=== PATIENT | female | born 1950 | race African-American/Black ===

== ENCOUNTER 2019-05-25 17:12 | Emergency (ER) | payer OTHER ==
[~2019-05-25] VITALS: Ht 170.2 cm; Wt 70.8 kg
[2019-05-25 17:17] VITALS: BP 145/79
--- NOTE | 2019-05-25 17:23 | NUR ---
ED Nurse Note: Pt walked in due to right arm and hand swelling after slipping and falling x 2 days ago in her garage. Denies head injury but noted right arm and hand moderate swelling. AAO x4, ambulatory and able to move RUE.
--- NOTE | 2019-05-25 17:25 | NUR ---
ED Nurse Note: ICE PACK APPLIED ON RIGHT HAND AND ARM.
[2019-05-25] MEDS ORDERED: Tylenol #3 tab (300mg/30mg) ONE (17:29)
[2019-05-25] MEDS ORDERED: Tylenol #3 tab (300mg/30mg) PO ONE (17:30)
--- NOTE | 2019-05-25 17:51 | NUR ---
ED Nurse Note: MASTER PRINTER AT THE BED SIDE FOR XRAY.
[2019-05-25] MEDS ORDERED: ACETAMINOPHEN-1 EAC1 ORAL (18:36)
[2019-05-25 18:40] VITALS: BP 139/80
--- NOTE | 2019-05-25 18:40 | NUR ---
ER DISCHARGE NOTE: Patient is cleared to be discharged per ERMD, pt is aox4, on room air, with stable vital signs. pt was given dc and prescription instructions, pt was able to verbalize understanding, pt id band removed without complications. pt is able to ambulate with steady gait. pt took all belongings and left with her family member.
--- NOTE | 2019-05-25 19:15 | Emergency Room Report ---
History of Present Illness General Chief Complaint: Upper Extremity Injury Source: Patient Present Illness HPI 68-year-old female presents ED for evaluation. Complaining of pain to the right wrist and hand. States she had a mechanical trip and fall 2 days ago and landed on her outstretched right hand. Denies hitting her head or LOC. Notes pain and swelling to the right hand and wrist. Throbbing, 8 out of 10, nonradiating. Denies any other injuries. No other aggravating relieving factors. Denies any other associated symptoms Allergies: Coded Allergies: No Known Allergies (Unverified , 05/25/19) Patient History Past Medical History: psych hx Past Surgical History: none Pertinent Family History: none Social History: Denies: smoking, alcohol use, drug use Now: No Immunizations: UTD Reviewed Nursing Documentation: PMH: Agreed; PSxH: Agreed Nursing Documentation-PMH Hx Hypertension: Yes History Of Psychiatric Problem: Yes - Depression Review of Systems All Other Systems: negative except mentioned in HPI Physical Exam Vital Signs Date Time Temp Pulse Resp B/P (MAP) Pulse Ox O2 Delivery O2 Flow Rate FiO2 05/25/19 17:17 98.4 77 20 145/79 97 Room Air Sp02 EP Interpretation: reviewed, normal General Appearance: no apparent distress, alert, GCS 15, non-toxic Head: normocephalic Eyes: bilateral eye normal inspection, bilateral eye PERRL ENT: normal ENT inspection Neck: normal inspection Respiratory: normal inspection Cardiovascular #1: normal inspection Gastrointestinal: normal inspection Rectal: deferred Genitourinary: normal inspection Musculoskeletal: tender - R wrist Neurologic: alert, oriented x3, responsive, motor strength/tone normal, sensory intact, speech normal Psychiatric: normal inspection Skin: no rash Lymphatic: normal inspection Procedures Splinting Splinting : Consent: Verbal Hand-Made Type: plaster Pre-Proc Neuro Vasc Exam: normal Post-Proc Neuro Vasc Exam: normal Patient Tolerated: Well Complications: None Medical Decision Making Diagnostic Impression: Primary Impression: Wrist fracture Qualified Codes: S62.101A - Fracture of unspecified carpal bone, right wrist, initial encounter for closed fracture ER Course Hospital Course 68 yo F presents with R wrist pain/swelling Differential diagnoses include: Fracture, dislocation, sprain, contusion Clinical course Patient placed on stretcher. After initial history and physical, I ordered pain medications and Xrays of R hand, wrist Xrays prelim read shows distal radius fx. placed in volar splint I discussed findings with patient. Will discharge to home with volar splint. Will provide orthopedic referrals. Safe for discharge for close outpatient follow-up Diagnosis - wrist fracture Stable and discharged to home with prescription for tylenol #3. apply ice, keep elevated. Followup with PMD/ortho. Return to ED if symptoms recur or worsen Other X-Ray Diagnostic Results Other X-Ray Diagnostic Results #1: X-Ray ordered: R hand # of Views/Limited Vs Complete: 3 View Indication: Pain EP Interpretation: Yes Interpretation: no dislocation, no fractures Impression: No acute disease Electronically Signed by: Electronically signed by Sukhwinder Field MD Other X-Ray Diagnostic Results #2: X-Ray ordered: R wrist # of Views/Limited Vs Complete: 3 View Indication: Pain EP Interpretation: Yes Interpretation: no dislocation, other - distal radius fx Impression: Other - distal radius fx Electronically Signed by: Electronically signed by Sukhwinder Field MD Last Vital Signs Date Time Temp Pulse Resp B/P (MAP) Pulse Ox O2 Delivery O2 Flow Rate FiO2 05/25/19 18:40 98.0 86 15 139/80 98 Room Air Status: improved Disposition: HOME, SELF-CARE Condition: Stable Scripts Acetaminophen With Codeine (T#3) (TYLENOL #3 TAB*) Y Tab 1 TAB ORAL Q4H PRN for For Pain, #12 TAB Prov: Sukhwinder Field MD 05/25/19 [facility] 24 hour /7 days a week by Appointment Only [address] [facility] [address] [facility] [address] [facility] [id number] Patient Instructions: Wrist Fracture, [id number] Sukhwinder Field MD May 25, 2019 19:15
--- NOTE | 2019-05-26 11:47 | Diagnostic Imaging Report ---
Clinical Indication:Right wrist pain Technique: 3 views of the right wrist Comparison: None Findings: There is a transverse fracture of the distal radius. This is minimal displacement with minimal anterior angulation. No associated ulnar fracture demonstrated. No evidence of articular surface involvement. No carpal fracture demonstrated. The joint spaces are preserved. Impression: Positive for distal radial fracture This agrees with the preliminary interpretation reported by the emergency room physician in the electronic medical record
--- NOTE | 2019-05-26 11:51 | Diagnostic Imaging Report ---
Indication: Right hand pain Technique: 3 views right hand Comparison: none Findings: There is a fracture the distal radius. No and or carpal fracture demonstrated. Bony alignment is normal. The joint spaces are preserved. There is dorsal soft tissue swelling. The bones are osteoporotic Impression: Positive for distal radial fracture, described on separate wrist radiograph report. No evidence of hand fracture
== END 2019-05-25 18:40 | disposition home or self-care (01) ==
LOC: EMR 17:56
DX: S52.501A Unspecified fracture of the lower end of right radius, initial encounter for closed fracture (principal); F32.9 Major depressive disorder, single episode, unspecified; I10 Essential (primary) hypertension; W01.0XXA Fall on same level from slipping, tripping and stumbling without subsequent striking against object, initial encounter; Y92.9 Unspecified place or not applicable
CPT/HCPCS: 29125; 99283

== ENCOUNTER 2020-02-19 01:31 | Emergency (ER) | payer OTHER ==
[~2020-02-19] VITALS: Ht 167.6 cm; Wt 72.6 kg
[~2020-02-19 01:31] MED LIST: ACETAMINOPHEN-1 EAC1 ORAL
[2020-02-19 01:55] VITALS: BP 143/80
--- NOTE | 2020-02-19 01:55 | NUR ---
ED Nurse Note: Recieved pt from home,here with c/o right eye redness and swelling for[past 2 hours, tp thinks something is in eye but can not see it, denies injury or visual changes or any other complaints.
[2020-02-19] MEDS ORDERED: Fluorescein Strips RIGHT EYE ONE (02:00)
[2020-02-19] MEDS ORDERED: Tetracaine 0.5% Opth 4ml Soln RIGHT EYE ONE (02:00)
[2020-02-19] MEDS ORDERED: ACULAR LS5 ML RIGHT EYE (02:10)
[2020-02-19] MEDS ORDERED: POLYTRIM OP SOL10 ML OPHTHALM (02:10)
--- NOTE | 2020-02-19 02:11 | Emergency Room Report ---
History of Present Illness General Chief Complaint: Eye Problems Source: Patient Present Illness HPI This is a 69-year-old female with a history of high blood pressure. She presents with chief complaint of right eye redness. Onset was about a couple hours ago. She was in bed and felt something in her eyes. She been rubbing it and try to get it out but unsuccessful. Essentially made it worse. Now she more redness. No fever chills but no nausea no vomiting. Does not wear contacts. Allergies: Coded Allergies: No Known Allergies (Unverified , 05/25/19) COVID-19 Screening Contact w/high risk pt: No Recent Travel to affected area: No Experienced COVID-19 symptoms?: No COVID-19 Testing performed SLIP FEEDER: No Patient History Past Medical History: see triage record, old chart reviewed, HTN Past Surgical History: other Pertinent Family History: none Social History: Denies: smoking Now: No Immunizations: other Reviewed Nursing Documentation: PMH: Agreed; PSxH: Agreed Nursing Documentation-PMH Hx Hypertension: Yes Review of Systems Eye: Reports: eye pain, tearing; Denies: blurred vision ENT: Denies: ear pain, nose congestion, throat swelling Respiratory: Denies: cough, shortness of breath Cardiovascular: Denies: chest pain, palpitations Gastrointestinal: Denies: abdominal pain, diarrhea, nausea, vomiting Musculoskeletal: Denies: back pain, joint pain Skin: Denies: rash Neurological: Denies: headache, numbness Endocrine: Denies: increased thirst, increased urine Hematologic/Lymphatic: Denies: easy bruising All Other Systems: negative except mentioned in HPI Physical Exam Vital Signs Date Time Temp Pulse Resp B/P (MAP) Pulse Ox O2 Delivery O2 Flow Rate FiO2 02/19/20 01:42 97.9 78 18 143/80 (101) 98 Room Air Vitals unremarkable Sp02 EP Interpretation: reviewed, normal General Appearance: well appearing, no apparent distress, alert Head: normocephalic, atraumatic Eyes: right eye other - Right eye with injected sclera and conjunctiva. On fluorescein staining, there is fine corneal abrasion superiorly. No foreign body. Negative Beth sign.; bilateral eye PERRL, bilateral eye EOMI ENT: hearing grossly normal, normal pharynx Neck: full range of motion, supple, no meningismus Respiratory: chest non-tender, lungs clear, normal breath sounds Cardiovascular #1: regular rate, rhythm, no murmur Gastrointestinal: normal bowel sounds, non tender, no mass, no organomegaly, no bruit, non-distended Musculoskeletal: back normal, normal range of motion, gait/station normal Psychiatric: mood/affect normal Medical Decision Making Diagnostic Impression: Primary Impression: Acute conjunctivitis, unspecified Additional Impression: Corneal abrasion, right Qualified Codes: S05.01XA - Injury of conjunctiva and corneal abrasion without foreign body, right eye, initial encounter ER Course Patient presents with conjunctivitis of her right eye. Worsened because she has been rubbing it. No obvious foreign body. No globe rupture. Will discharge home with antibiotic drops. Last Vital Signs Date Time Temp Pulse Resp B/P (MAP) Pulse Ox O2 Delivery O2 Flow Rate FiO2 02/19/20 01:42 97.9 78 18 143/80 (101) 98 Room Air Status: improved Disposition: HOME, SELF-CARE Condition: Stable Scripts Ketorolac Tromethamine (ACULAR LS) 5 Ml Drops 1 DROP RIGHT EYE FOUR TIMES A DAY, #5 ML Prov: Shahbaz Salcedo MD 02/19/20 Polymyxin/Trimethoprim (Polytrim Eye Drops) 10 Ml Drops 2 DROP OPHTHALM THREE TIMES A DAY, #1 EA Instill in affected eye for 7 days Prov: Shahbaz Salcedo MD 02/19/20 Patient Instructions: Bacterial Conjunctivitis Additional Instructions: Do not rub your eyes. Follow-up your doctor in 2-3 days if not better. You may need referral to see an eye doctor. Return if symptoms worsen. Shahbaz Salcedo MD February 19, 2020 02:11
[2020-02-19 02:15] VITALS: BP 138/77
--- NOTE | 2020-02-19 02:15 | NUR ---
ER DISCHARGE NOTE: Patient is cleared to be discharged per ERMD, pt is aox4, on room air, with stable vital signs. pt was given dc and prescription instructions, pt was able to verbalize understanding, pt id band removed without complications. pt is able to ambulate with steady gait. pt took all belongings.
== END 2020-02-19 02:15 | disposition home or self-care (01) ==
LOC: EMR 01:50
DX: H10.31 Unspecified acute conjunctivitis, right eye (principal); S05.01XA Injury of conjunctiva and corneal abrasion without foreign body, right eye, initial encounter; I10 Essential (primary) hypertension; X58.XXXA Exposure to other specified factors, initial encounter; Y92.9 Unspecified place or not applicable
CPT/HCPCS: 99282